=== PATIENT | female | born 1940 | race Caucasian/White ===

== ENCOUNTER → 2016-11-09 | Outpatient (CLI) | payer OTHER ==
[~2016-11-09] MED LIST: COREG12.5 M1 PO; PERCOCET 5/31 TABLET PO; SYNTHROID112 MCG PO; SYNTHROID125 MCG; ZOFRAN ODT4 MG PO
== END | disposition home or self-care (01) ==
DX: R13.10 Dysphagia, unspecified (principal)
CPT/HCPCS: 92611 GN; G8996 GN; G8997 GN; G8998 GN